=== PATIENT | male | born 1945 | race Caucasian/White ===

== ENCOUNTER 2016-08-26 06:15 | Day surgery (SDC) | payer OTHER ==
[2016-08-25 16:08] VITALS: BMI 28.6
[2016-08-26 06:33] VITALS: TEMP 97.5
[2016-08-26] MEDS: CYCLOPENTOLATE HCL 1% OPHTH SOLN 2 ML BOTTLE ONE ×3 (07:00→07:37)
[2016-08-26] MEDS: TROPICAMIDE 1% OPHTH SOLN 15 ML BOTTLE ONE ×3 (07:00→07:38)
[2016-08-26] MEDS: PHENYLEPHRINE 2.5% OPHTH SOLN 15 ML BOTTLE ONE ×3 (07:00→07:37)
[2016-08-26] MEDS: FLURBIPROFEN 0.03% OPHTH SOLN 2.5 ML BOTTLE ONE ×2 (07:00→07:15)
[2016-08-26] MEDS: CIPROFLOXACIN 0.3% EYE DROPS 5 ML BOTTLE ONE ×4 (07:00→07:38)
[2016-08-26] MEDS ORDERED: VANCOMYCIN 500 MG VIAL (RESTRICTED TO ID ONLY) ONE (07:17)
[2016-08-26] MEDS ORDERED: POVIDONE-IODINE 5% OPHTHALMIC PREP 30 ML SOLUTION ONE (07:17)
[2016-08-26] MEDS ORDERED: LIDOCAINE HCL/PF 1% SDV 5ML VIAL ONE (07:17)
[2016-08-26] MEDS ORDERED: WATER FOR INJ,STERILE 10 ML ONE (07:17)
[2016-08-26] MEDS ORDERED: LIDOCAINE HCL 2% JELLY (5 ML/TUBE) ONE (07:17)
[2016-08-26] MEDS ORDERED: ACETAMINOPHEN 325 MG TABLET (FP) PO PRN (07:43)
[2016-08-26] MEDS ORDERED: FLURBIPROFEN 0.03% OPHTH SOLN 2.5 ML BOTTLE OP SCH (07:45)
[2016-08-26] MEDS ORDERED: CYCLOPENTOLATE HCL 1% OPHTH SOLN 2 ML BOTTLE OP SCH (07:45)
[2016-08-26] MEDS ORDERED: CIPROFLOXACIN HCL 0.3% OPHTH 2.5ML BOTTLE OP SCH (07:45)
[2016-08-26] MEDS ORDERED: TROPICAMIDE 1% OPHTH SOLN 15 ML BOTTLE OP SCH (07:45)
[2016-08-26] MEDS ORDERED: PHENYLEPHRINE 2.5% OPHTH SOLN 15 ML BOTTLE OP SCH (07:45)
[2016-08-26] MEDS ORDERED: LIDOCAINE HCL 2% JELLY (5 ML/TUBE) TP ONE (07:50)
[2016-08-26] MEDS ORDERED: MIDAZOLAM HCL 2 MG/2 ML SINGLE DOSE VIAL ONE (07:54)
[2016-08-26] MEDS ORDERED: PHENYLEPHRINE/KETOROLAC 4 ML VIAL IO ONE ×2 (08:00→08:18)
[2016-08-26] MEDS ORDERED: POVIDONE-IODINE 5% OPHTHALMIC PREP 30 ML SOLUTION OS ONE (08:04)
[2016-08-26] MEDS ORDERED: LIDOCAINE HCL 1% PRESERVATIVE FREE - 30ML VIAL IO ONE (08:13)
[2016-08-26] MEDS ORDERED: CHONDROITIN SU A/HYALUR SOD 1 KIT IO ONE (08:13)
[2016-08-26] MEDS ORDERED: BSS (NA/CA/MG/K) BALANCED SALT SOLUTION OPHTH SOLN 15 ML BOTTLE OS ONE (08:13)
[2016-08-26 08:55] VITALS: BP 141/81; PULSE 64
--- NOTE | 2016-08-26 11:15 | SPEC ---
DATE OF OPERATION: 08/26/2016 PREOPERATIVE DIAGNOSIS: Cataract, left eye. POSTOPERATIVE DIAGNOSIS: Cataract, left eye. PROCEDURE: Phacoemulsification of left cataract with posterior chamber intraocular lens implantation. Lens used [id number], 22.0 Diopter power, Serial No. [id number]. SURGEON: Aminata Earl M.D. ANESTHESIA: Topical MAC. COMPLICATIONS: None. PROCEDURE: The patient was brought to the operating room and correctly identified along with the operative site and the correct intraocular lens smith. The patient was then prepped and draped in the usual sterile fashion including 5% Betadine solution in the conjunctival sac and an eyelid drape. An eyelid speculum was then placed in the eye. A paracentesis port was created and approximately 0.5 mL of preservative free Lidocaine was then injected into the eye. Viscoelastic was then injected to inflate the anterior chamber. A temporal clear corneal wound was created. A continuous circular capsulorrhexis was performed. The nucleus was then hydro-dissected with BSS and removed with phacoemulsification. The remaining cortical material was irrigated and aspirated. Viscoelastic was injected to inflate the capsular bag and the intraocular lens was then implanted into the capsular bag. The remaining Viscoelastic was irrigated and aspirated from the eye. The IOL was noted to be well centered and completely covered by the anterior capsulorrhexis. Topical Vancomycin was placed and the eye patched and shielded. The patient was then discharged from the operating room in stable condition. All wounds were tested and found to be watertight. No suture was placed. The eye was then shielded. The patient was then discharged from the operating room in stable condition. AMINATA EARL M.D. /[id number]
== END 2016-08-26 09:45 | disposition home or self-care (01) ==
LOC: JASU-SURG 06:15
PROVIDERS: ATTEND Ophthalmology
PROC: 08RK3JZ Replacement of Left Lens with Synthetic Substitute, Percutaneous Approach (ICD-10-PCS; principal; 2016-08-26 08:00)
DX: H26.9 Unspecified cataract (principal)
CPT/HCPCS: C9447

== ENCOUNTER 2016-09-09 07:12 | Day surgery (SDC) | payer OTHER ==
[2016-09-07 17:27] VITALS: BMI 28.6
[~2016-09-09 07:12] MED LIST: ACETAMINOPHEN 325 MG TABLET (FP) PO PRN; CIPROFLOXACIN HCL 0.3% OPHTH 2.5ML BOTTLE OP SCH; CYCLOPENTOLATE HCL 1% OPHTH SOLN 2 ML BOTTLE OP SCH; FLURBIPROFEN 0.03% OPHTH SOLN 2.5 ML BOTTLE OP SCH; PHENYLEPHRINE 2.5% OPHTH SOLN 15 ML BOTTLE OP SCH; TROPICAMIDE 1% OPHTH SOLN 15 ML BOTTLE OP SCH
[2016-09-09] MEDS ORDERED: LIDOCAINE HCL/PF 1% SDV 5ML VIAL ONE (07:31)
[2016-09-09] MEDS: CYCLOPENTOLATE HCL 1% OPHTH SOLN 2 ML BOTTLE ONE ×3 (07:50→08:20)
[2016-09-09] MEDS: CIPROFLOXACIN 0.3% EYE DROPS 5 ML BOTTLE ONE ×3 (07:50→08:20)
[2016-09-09] MEDS: PHENYLEPHRINE 2.5% OPHTH SOLN 15 ML BOTTLE ONE ×3 (07:50→08:21)
[2016-09-09] MEDS: TROPICAMIDE 1% OPHTH SOLN 15 ML BOTTLE ONE ×3 (07:50→08:21)
[2016-09-09] MEDS: FLURBIPROFEN 0.03% OPHTH SOLN 2.5 ML BOTTLE ONE ×3 (07:50→08:22)
[2016-09-09] MEDS ORDERED: PHENYLEPHRINE/KETOROLAC 4 ML VIAL IO ONE ×2 (08:15→09:29)
[2016-09-09 08:25] VITALS: TEMP 98.3
[2016-09-09] MEDS ORDERED: LIDOCAINE HCL 2% JELLY (5 ML/TUBE) TP ONE (08:45)
[2016-09-09] MEDS ORDERED: MIDAZOLAM HCL 2 MG/2 ML SINGLE DOSE VIAL ONE (08:58)
[2016-09-09] MEDS ORDERED: POVIDONE-IODINE 5% OPHTHALMIC PREP 30 ML SOLUTION OD ONE (09:15)
[2016-09-09] MEDS ORDERED: BSS (NA/CA/MG/K) BALANCED SALT SOLUTION OPHTH SOLN 15 ML BOTTLE OD ONE (09:23)
[2016-09-09] MEDS ORDERED: CHONDROITIN SU A/HYALUR SOD 1 KIT IO ONE (09:23)
[2016-09-09] MEDS ORDERED: LIDOCAINE HCL 1% PRESERVATIVE FREE - 30ML VIAL IO ONE (09:23)
[2016-09-09 11:55] VITALS: BP 132/76; PULSE 65
--- NOTE | 2016-09-09 22:02 | SPEC ---
DATE OF SURGERY: 09/09/2016 OPERATION: Phacoemulsification with posterior chamber intraocular lens implantation, right eye. Lens used SN60WF, Diopter power 21.5, Serial No. [id number]. PREOPERATIVE DIAGNOSIS: Cataract, right eye. POSTOPERATIVE DIAGNOSIS: Cataract, right eye. SURGEON: Aminata Earl M.D. ANESTHESIA: Topical MAC. COMPLICATIONS: None. PROCEDURE: The patient was brought to the operating room and correctly identified along with the operative site and the correct intraocular lens smith. The patient was then prepped and draped in the usual sterile fashion including 5% Betadine solution in the conjunctival sac and an eyelid drape. An eyelid speculum was then placed in the eye. A paracentesis port was created and approximately 0.5 mL of preservative free Lidocaine was then injected into the eye. Viscoelastic was then injected to inflate the anterior chamber. A temporal clear corneal wound was created. A continuous circular capsulorrhexis was performed. The nucleus was then hydrodissected with BSS and removed with phacoemulsification. The remaining cortical material was irrigated and aspirated. Viscoelastic was injected to inflate the capsular bag and the intraocular lens was then implanted into the capsular bag. The remaining Viscoelastic was irrigated and aspirated from the eye. The IOL was noted to be well centered and completely covered by the anterior capsulorrhexis. Topical vancomycin was placed and the eye patched and shielded. All wounds were tested and found to be watertight. No suture was placed. The eye was then shielded. The patient was then discharged from the operating room in stable condition. AMINATA EARL M.D. [id number]
== END 2016-09-09 10:40 | disposition home or self-care (01) ==
LOC: JASU-SURG 07:12
PROVIDERS: ATTEND Ophthalmology
PROC: 08RJ3JZ Replacement of Right Lens with Synthetic Substitute, Percutaneous Approach (ICD-10-PCS; principal; 2016-09-09 09:00)
DX: H26.9 Unspecified cataract (principal)
CPT/HCPCS: C9447

== ENCOUNTER 2023-01-06 08:24 | Inpatient (IN) | payer MEDICARE, OTHER ==
[2023-01-06 11:06] LABS: BASO % 0.6 % (0-2.0); EOS % 1.5 % (0-4.5); HEMATOCRIT 30.6 % (35.4-49); HEMOGLOBIN 10.1 GM/dL (11.7-16.9); LYMPH % 12.4 % (8-40); MCH 30.6 pg (25.7-33.7); MCHC 32.9 g/dl (32.0-35.9); MEAN PLT VOLUME 8.1 fl (7.5-11.1); NEUT % 78.5 % (42.8-82.8); PLATELET COUNT 201 10^3/uL (134-434); RBC 3.29 M/mm3 (4.00-5.60); RDW 15.7 % (11.9-15.9); WHITE BLOOD COUNT 7.7 K/mm3 (4.0-10.0)
[2023-01-06 11:13] LABS: INR 1.67 (0.83-1.09); PROTHROMBIN TIME (PATIENT) 19.3 SEC (9.7-13.0)
[2023-01-06] MEDS ORDERED: CEFTRIAXONE 1,000 MG in DEXTROSE 5%-WATER - 50 ML IVPB ONE (11:21)
[2023-01-06] MEDS ORDERED: AZITHROMYCIN IVPB 500 MG in DEXTROSE 5%-WATER - 250 ML IVPB ONE (11:21)
[2023-01-06] MEDS ORDERED: AZITHROMYCIN IVPB 500 MG/250 ML BAG IVPB ONE (11:23)
[2023-01-06] MEDS ORDERED: CEFTRIAXONE 1 GM/50 ML BAG ONE (11:23)
[2023-01-06 11:31] LABS: POTASSIUM 3.2 mmol/L (3.5-5.1)
[2023-01-06 11:33] LABS: CALCIUM 8.3 mg/dL (8.5-10.1)
[2023-01-06 11:34] LABS: ALBUMIN 3.4 g/dl (3.4-5.0); BLOOD UREA NITROGEN 5.3 mg/dL (7-18)
[2023-01-06 11:37] LABS: CREATININE 0.8 mg/dL (0.55-1.3)
[2023-01-06 11:39] LABS: BILIRUBIN,TOTAL 1.8 mg/dL (0.2-1); TOT PROT 8.1 g/dl (6.4-8.2)
[2023-01-06 11:42] LABS: N-TERMINAL BNP 2434.6 pg/ml (5-450)
[2023-01-06] MEDS ORDERED: FUROSEMIDE 40 MG/4 ML INJECTABLE VIAL IVPUSH ONE (12:26)
[2023-01-06] MEDS ORDERED: FUROSEMIDE 40 MG/4 ML INJECTABLE VIAL ONE (12:27)
[2023-01-06] MEDS ORDERED: POTASSIUM CHLORIDE TABS 20 MEQ TABLET.ER (FP) PO ONE ×3 (12:55→13:53)
[2023-01-06] MEDS ORDERED: PANTOPRAZOLE 40 MG TABLET PO ONE (13:19)
[2023-01-06] MEDS: PANTOPRAZOLE 40 MG TABLET PO SCH (13:25)
[2023-01-06 14:09] LABS: MAGNESIUM 2.1 mg/dL (1.8-2.4)
[2023-01-06 14:11] LABS: BILIRUBIN,DIRECT 0.6 mg/dL (0.0-0.2)
[2023-01-06] MEDS: ATORVASTATIN CA 10 MG TABLET (FP) PO SCH (21:30)
[2023-01-06] MEDS: ENOXAPARIN NA (PORCINE) 80 MG/0.8 ML DISP.SYRIN SQ SCH (21:31)
[2023-01-07 07:00] LABS: INR 1.46 (0.83-1.09); PROTHROMBIN TIME (PATIENT) 16.9 SEC (9.7-13.0)
[2023-01-07 07:04] LABS: BASO % 0.6 % (0-2.0); EOS % 2.5 % (0-4.5); HEMATOCRIT 31.3 % (35.4-49); HEMOGLOBIN 10.2 GM/dL (11.7-16.9); LYMPH % 16.6 % (8-40); MCH 30.1 pg (25.7-33.7); MCHC 32.5 g/dl (32.0-35.9); MEAN CELL VOLUME 92.6 fl (80-96); MEAN PLT VOLUME 8.5 fl (7.5-11.1); MONO % 6.4 % (3.8-10.2); NEUT % 73.9 % (42.8-82.8); PLATELET COUNT 221 10^3/uL (134-434); RBC 3.38 M/mm3 (4.00-5.60); RDW 15.3 % (11.9-15.9); WHITE BLOOD COUNT 7.6 K/mm3 (4.0-10.0)
[2023-01-07 07:09] LABS: POTASSIUM 3.4 mmol/L (3.5-5.1)
[2023-01-07 07:11] LABS: CALCIUM 8.4 mg/dL (8.5-10.1)
[2023-01-07 07:12] LABS: ALBUMIN 3.4 g/dl (3.4-5.0); BLOOD UREA NITROGEN 10.2 mg/dL (7-18); MAGNESIUM 2.1 mg/dL (1.8-2.4)
[2023-01-07 07:15] LABS: CREATININE 0.9 mg/dL (0.55-1.3); PHOSPHOROUS 2.7 mg/dL (2.5-4.9)
[2023-01-07 07:16] LABS: TOT PROT 8.2 g/dl (6.4-8.2)
[2023-01-07 07:17] LABS: BILIRUBIN,TOTAL 1.5 mg/dL (0.2-1)
[2023-01-07] MEDS ORDERED: POTASSIUM CHLORIDE TABS 20 MEQ TABLET.ER (FP) PO SCH (10:00)
[2023-01-07] MEDS ORDERED: AZITHROMYCIN IVPB 250 MG in DEXTROSE 5%-WATER - 250 ML IVPB SCH (10:00)
[2023-01-07] MEDS ORDERED: DIGOXIN 0.125 MG TABLET PO SCH (10:00)
[2023-01-07] MEDS ORDERED: RAMIPRIL 5 MG CAPSULE PO SCH (10:00)
[2023-01-07] MEDS ORDERED: CEFTRIAXONE 1 GM in DEXTROSE 5%-WATER - 50 ML IVPB SCH (10:00)
[2023-01-07] MEDS ORDERED: HEPARIN NA (PORCINE) 5,000 UNITS/ML 1ML VIAL IVPUSH PRN ×2 (10:22)
[2023-01-07] MEDS ORDERED: HEPARIN INFUSION - 25,000 UNITS/500 ML INFUS.BAG IVPB SCH (10:30)
[2023-01-07] MEDS: PANTOPRAZOLE 40 MG TABLET PO SCH (10:39)
[2023-01-07] MEDS: FUROSEMIDE 40 MG/4 ML INJECTABLE VIAL IVPUSH SCH (10:39)
[2023-01-07] MEDS: ALLOPURINOL 300 MG TABLET (FP) PO SCH (10:39)
[2023-01-07] MEDS: metoPROLOL SUCCINATE 25 MG TAB.SR.24H (FP) PO SCH (10:40)
[2023-01-07] MEDS: ENOXAPARIN NA (PORCINE) 80 MG/0.8 ML DISP.SYRIN SQ SCH ×2 (10:40→10:52)
[2023-01-07] MEDS ORDERED: POTASSIUM CHLORIDE TABS 20 MEQ TABLET.ER (FP) PO ONE (10:45)
[2023-01-07] MEDS: POTASSIUM CHLORIDE TABS 20 MEQ TABLET.ER (FP) PO SCH (13:41)
[2023-01-07] MEDS ORDERED: RAMIPRIL 5 MG CAPSULE PO ONE (14:15)
[2023-01-07] MEDS ORDERED: ENOXAPARIN NA (PORCINE) 80 MG/0.8 ML DISP.SYRIN SQ ONE (14:45)
[2023-01-07] MEDS ORDERED: BISACODYL 5 MG TABLET.DR (FP) PO ONE (16:00)
[2023-01-07] MEDS ORDERED: PEG 3350/NA SULF BICARB CL/KCL 4000 ML SOLN.RECON PO ONE (17:00)
[2023-01-07] MEDS ORDERED: APIXABAN 5 MG TABLET PO SCH (22:00)
[2023-01-07] MEDS: ATORVASTATIN CA 10 MG TABLET (FP) PO SCH (22:13)
[2023-01-07] MEDS: POLYETHYLENE GLYCOL (HEALTHYLAX) 3350 17 GM PACKET PO SCH (22:13)
[2023-01-08 07:10] LABS: BASO % 0.7 % (0-2.0); EOS % 3.3 % (0-4.5); HEMATOCRIT 32.6 % (35.4-49); HEMOGLOBIN 10.9 GM/dL (11.7-16.9); LYMPH % 15.7 % (8-40); MCHC 33.4 g/dl (32.0-35.9); MEAN CELL VOLUME 92.7 fl (80-96); MEAN PLT VOLUME 8.3 fl (7.5-11.1); MONO % 7.8 % (3.8-10.2); NEUT % 72.5 % (42.8-82.8); PLATELET COUNT 232 10^3/uL (134-434); RBC 3.52 M/mm3 (4.00-5.60); RDW 15.3 % (11.9-15.9); WHITE BLOOD COUNT 8.4 K/mm3 (4.0-10.0)
[2023-01-08 07:17] LABS: INR 1.38 (0.83-1.09); PROTHROMBIN TIME (PATIENT) 15.9 SEC (9.7-13.0)
[2023-01-08 08:06] LABS: MAGNESIUM 1.9 mg/dL (1.8-2.4)
[2023-01-08 08:07] LABS: TOT PROT 8.6 g/dl (6.4-8.2)
[2023-01-08 08:09] LABS: ALBUMIN 3.6 g/dl (3.4-5.0); BLOOD UREA NITROGEN 6.9 mg/dL (7-18); CALCIUM 8.2 mg/dL (8.5-10.1); PHOSPHOROUS 3.1 mg/dL (2.5-4.9)
[2023-01-08 08:10] LABS: CREATININE 0.8 mg/dL (0.55-1.3)
[2023-01-08 08:11] LABS: BILIRUBIN,TOTAL 1.8 mg/dL (0.2-1)
[2023-01-08] MEDS: POLYETHYLENE GLYCOL (HEALTHYLAX) 3350 17 GM PACKET PO SCH ×2 (09:14→22:21)
[2023-01-08] MEDS: RAMIPRIL 5 MG CAPSULE PO SCH (09:19)
[2023-01-08] MEDS: PANTOPRAZOLE 40 MG TABLET PO SCH (09:19)
[2023-01-08] MEDS: metoPROLOL SUCCINATE 25 MG TAB.SR.24H (FP) PO SCH (09:19)
[2023-01-08] MEDS: FUROSEMIDE 40 MG/4 ML INJECTABLE VIAL IVPUSH SCH (09:20)
[2023-01-08] MEDS: POTASSIUM CHLORIDE TABS 20 MEQ TABLET.ER (FP) PO SCH ×3 (09:20→22:21)
[2023-01-08] MEDS: CEFTRIAXONE 1 GM in DEXTROSE 5%-WATER - 50 ML IVPB SCH (09:20)
[2023-01-08] MEDS ORDERED: LORazepam 1 MG TABLET PO PRN (13:56)
[2023-01-08] MEDS: APIXABAN 5 MG TABLET PO SCH ×2 (13:59→22:22)
[2023-01-08] MEDS: ALLOPURINOL 300 MG TABLET (FP) PO SCH (14:00)
[2023-01-08] MEDS: DOXYCYCLINE INJECTION 100 MG in DEXTROSE 5%-WATER 100 ML IVPB SCH ×2 (14:00→22:22)
[2023-01-08] MEDS: LORazepam 1 MG TABLET PO SCH ×3 (15:05→22:22)
[2023-01-08 16:45] VITALS: BMI 27.8
[2023-01-08] MEDS: ATORVASTATIN CA 10 MG TABLET (FP) PO SCH (22:21)
[2023-01-09] MEDS: LORazepam 1 MG TABLET PO SCH ×3 (06:10→12:27)
[2023-01-09 08:37] LABS: HEMATOCRIT 29.7 % (35.4-49); HEMOGLOBIN 10.2 GM/dL (11.7-16.9); MCH 31.1 pg (25.7-33.7); MCHC 34.4 g/dl (32.0-35.9); MEAN CELL VOLUME 90.5 fl (80-96); MEAN PLT VOLUME 8.1 fl (7.5-11.1); PLATELET COUNT 244 10^3/uL (134-434); RBC 3.28 M/mm3 (4.00-5.60); RDW 15.5 % (11.9-15.9); WHITE BLOOD COUNT 8.5 K/mm3 (4.0-10.0)
[2023-01-09 08:59] LABS: POTASSIUM 3.3 mmol/L (3.5-5.1)
[2023-01-09 09:01] LABS: CALCIUM 8.5 mg/dL (8.5-10.1)
[2023-01-09 09:02] LABS: ALBUMIN 3.4 g/dl (3.4-5.0); BLOOD UREA NITROGEN 11.2 mg/dL (7-18)
[2023-01-09 09:05] LABS: CREATININE 0.9 mg/dL (0.55-1.3)
[2023-01-09 09:06] LABS: BILIRUBIN,TOTAL 1.2 mg/dL (0.2-1)
[2023-01-09] MEDS ORDERED: POTASSIUM CHLORIDE ORAL LIQUID 20 MEQ/15 ML PO ONE (09:10)
[2023-01-09] MEDS: PANTOPRAZOLE 40 MG TABLET PO SCH (09:30)
[2023-01-09] MEDS: POLYETHYLENE GLYCOL (HEALTHYLAX) 3350 17 GM PACKET PO SCH ×3 (09:30→21:30)
[2023-01-09] MEDS: FOLIC ACID 1 MG TABLET (FP) PO SCH (09:31)
[2023-01-09] MEDS: APIXABAN 5 MG TABLET PO SCH ×2 (09:31→21:31)
[2023-01-09] MEDS: ALLOPURINOL 300 MG TABLET (FP) PO SCH (09:31)
[2023-01-09] MEDS: RAMIPRIL 5 MG CAPSULE PO SCH (09:31)
[2023-01-09] MEDS: metoPROLOL SUCCINATE 25 MG TAB.SR.24H (FP) PO SCH (09:31)
[2023-01-09] MEDS: CEFTRIAXONE 1 GM in DEXTROSE 5%-WATER - 50 ML IVPB SCH (09:34)
[2023-01-09] MEDS: ASPIRIN COATED 81 MG TABLET.EC PO SCH (09:36)
[2023-01-09] MEDS: POTASSIUM CHLORIDE TABS 20 MEQ TABLET.ER (FP) PO SCH ×2 (09:44→21:31)
[2023-01-09] MEDS: FUROSEMIDE 40 MG/4 ML INJECTABLE VIAL IVPUSH SCH (12:26)
[2023-01-09] MEDS: DOXYCYCLINE INJECTION 100 MG in DEXTROSE 5%-WATER 100 ML IVPB SCH ×2 (12:26→21:31)
[2023-01-09] MEDS: ATORVASTATIN CA 10 MG TABLET (FP) PO SCH (21:31)
[2023-01-10] MEDS ORDERED: LORazepam 1 MG TABLET PO SCH (05:00)
[2023-01-10 07:42] LABS: MAGNESIUM 2.2 mg/dL (1.8-2.4)
[2023-01-10 07:45] LABS: HEMATOCRIT 30.8 % (35.4-49); HEMOGLOBIN 10.4 GM/dL (11.7-16.9); MCH 30.8 pg (25.7-33.7); MCHC 33.8 g/dl (32.0-35.9); MEAN CELL VOLUME 91.2 fl (80-96); MEAN PLT VOLUME 7.9 fl (7.5-11.1); PLATELET COUNT 240 10^3/uL (134-434); RBC 3.37 M/mm3 (4.00-5.60); RDW 15.9 % (11.9-15.9); WHITE BLOOD COUNT 9.9 K/mm3 (4.0-10.0)
[2023-01-10] MEDS: CEFTRIAXONE 1 GM in DEXTROSE 5%-WATER - 50 ML IVPB SCH (09:37)
[2023-01-10] MEDS: RAMIPRIL 5 MG CAPSULE PO SCH (09:39)
[2023-01-10] MEDS: DOXYCYCLINE INJECTION 100 MG in DEXTROSE 5%-WATER 100 ML IVPB SCH ×2 (09:39→21:34)
[2023-01-10] MEDS: APIXABAN 5 MG TABLET PO SCH ×2 (09:40→21:34)
[2023-01-10] MEDS: ALLOPURINOL 300 MG TABLET (FP) PO SCH (09:40)
[2023-01-10] MEDS: FUROSEMIDE 40 MG/4 ML INJECTABLE VIAL IVPUSH SCH (09:40)
[2023-01-10] MEDS: ASPIRIN COATED 81 MG TABLET.EC PO SCH (09:40)
[2023-01-10] MEDS: FOLIC ACID 1 MG TABLET (FP) PO SCH (09:40)
[2023-01-10] MEDS: metoPROLOL SUCCINATE 25 MG TAB.SR.24H (FP) PO SCH (09:40)
[2023-01-10] MEDS: PANTOPRAZOLE 40 MG TABLET PO SCH (09:40)
[2023-01-10] MEDS: POLYETHYLENE GLYCOL (HEALTHYLAX) 3350 17 GM PACKET PO SCH ×2 (09:41→21:34)
[2023-01-10 09:56] LABS: POTASSIUM 3.8 mmol/L (3.5-5.1)
[2023-01-10 09:58] LABS: CALCIUM 8.8 mg/dL (8.5-10.1)
[2023-01-10 09:59] LABS: ALBUMIN 3.6 g/dl (3.4-5.0); BLOOD UREA NITROGEN 13.9 mg/dL (7-18)
[2023-01-10 10:02] LABS: CREATININE 1.1 mg/dL (0.55-1.3)
[2023-01-10 10:03] LABS: BILIRUBIN,TOTAL 0.9 mg/dL (0.2-1)
[2023-01-10 10:04] LABS: TOT PROT 8.3 g/dl (6.4-8.2)
[2023-01-10 10:07] LABS: N-TERMINAL BNP 1543.7 pg/ml (5-450)
[2023-01-10] MEDS: ATORVASTATIN CA 10 MG TABLET (FP) PO SCH (21:34)
[2023-01-11] MEDS ORDERED: LORazepam 0.5 MG TABLET PO PRN
[2023-01-11] MEDS ORDERED: LORazepam 0.5 MG TABLET PO SCH (05:00)
[2023-01-11 09:13] LABS: BASO % 0.7 % (0-2.0); EOS % 1.9 % (0-4.5); HEMATOCRIT 30.2 % (35.4-49); HEMOGLOBIN 9.7 GM/dL (11.7-16.9); LYMPH % 15.9 % (8-40); MCH 29.9 pg (25.7-33.7); MCHC 32.2 g/dl (32.0-35.9); MEAN CELL VOLUME 92.9 fl (80-96); MEAN PLT VOLUME 8.6 fl (7.5-11.1); MONO % 7.8 % (3.8-10.2); NEUT % 73.7 % (42.8-82.8); PLATELET COUNT 236 10^3/uL (134-434); RBC 3.26 M/mm3 (4.00-5.60); RDW 15.2 % (11.9-15.9); WHITE BLOOD COUNT 9.3 K/mm3 (4.0-10.0)
[2023-01-11] MEDS: CEFTRIAXONE 1 GM in DEXTROSE 5%-WATER - 50 ML IVPB SCH (10:07)
[2023-01-11] MEDS: DOXYCYCLINE INJECTION 100 MG in DEXTROSE 5%-WATER 100 ML IVPB SCH ×2 (10:08→21:26)
[2023-01-11] MEDS: ALLOPURINOL 300 MG TABLET (FP) PO SCH (10:10)
[2023-01-11] MEDS: APIXABAN 5 MG TABLET PO SCH ×2 (10:11→21:26)
[2023-01-11] MEDS: RAMIPRIL 5 MG CAPSULE PO SCH (10:11)
[2023-01-11] MEDS: ASPIRIN COATED 81 MG TABLET.EC PO SCH (10:12)
[2023-01-11] MEDS: POLYETHYLENE GLYCOL (HEALTHYLAX) 3350 17 GM PACKET PO SCH ×2 (10:12→21:26)
[2023-01-11] MEDS: FUROSEMIDE 40 MG/4 ML INJECTABLE VIAL IVPUSH SCH (10:12)
[2023-01-11] MEDS: FOLIC ACID 1 MG TABLET (FP) PO SCH (10:12)
[2023-01-11] MEDS: metoPROLOL SUCCINATE 25 MG TAB.SR.24H (FP) PO SCH (10:12)
[2023-01-11] MEDS: PANTOPRAZOLE 40 MG TABLET PO SCH (10:13)
[2023-01-11 11:24] LABS: POTASSIUM 3.4 mmol/L (3.5-5.1)
[2023-01-11 11:26] LABS: ALBUMIN 3.4 g/dl (3.4-5.0); BLOOD UREA NITROGEN 13.9 mg/dL (7-18); CALCIUM 9.1 mg/dL (8.5-10.1); MAGNESIUM 2.2 mg/dL (1.8-2.4)
[2023-01-11 11:29] LABS: CREATININE 0.8 mg/dL (0.55-1.3)
[2023-01-11 11:31] LABS: BILIRUBIN,TOTAL 0.8 mg/dL (0.2-1); TOT PROT 7.7 g/dl (6.4-8.2)
[2023-01-11] MEDS ORDERED: POTASSIUM CHLORIDE ORAL LIQUID 20 MEQ/15 ML PO ONE (13:15)
[2023-01-11] MEDS: amLODIPine BESYLATE 5 MG TABLET (FP) PO SCH (13:48)
[2023-01-11] MEDS ORDERED: POTASSIUM CHLORIDE TABS 20 MEQ TABLET.ER (FP) PO ONE (15:38)
[2023-01-11] MEDS: ATORVASTATIN CA 10 MG TABLET (FP) PO SCH (21:26)
[2023-01-11] MEDS: POTASSIUM CHLORIDE TABS 20 MEQ TABLET.ER (FP) PO SCH (21:26)
[2023-01-12] MEDS ORDERED: LORazepam 0.5 MG TABLET PO ONE (05:00)
[2023-01-12 08:17] LABS: POTASSIUM 3.9 mmol/L (3.5-5.1)
[2023-01-12 08:29] LABS: HEMATOCRIT 32.9 % (35.4-49); HEMOGLOBIN 10.8 GM/dL (11.7-16.9); MCH 30.6 pg (25.7-33.7); MCHC 32.7 g/dl (32.0-35.9); MEAN CELL VOLUME 93.4 fl (80-96); MEAN PLT VOLUME 8.8 fl (7.5-11.1); PLATELET COUNT 259 10^3/uL (134-434); RBC 3.52 M/mm3 (4.00-5.60); RDW 15.4 % (11.9-15.9); WHITE BLOOD COUNT 9.2 K/mm3 (4.0-10.0)
[2023-01-12 08:40] LABS: CALCIUM 9.3 mg/dL (8.5-10.1)
[2023-01-12 08:41] LABS: ALBUMIN 3.6 g/dl (3.4-5.0); BLOOD UREA NITROGEN 15.2 mg/dL (7-18); MAGNESIUM 2.3 mg/dL (1.8-2.4)
[2023-01-12 08:44] LABS: CREATININE 0.8 mg/dL (0.55-1.3); PHOSPHOROUS 3.9 mg/dL (2.5-4.9)
[2023-01-12 08:45] LABS: BILIRUBIN,TOTAL 0.9 mg/dL (0.2-1)
[2023-01-12 08:46] LABS: TOT PROT 8.6 g/dl (6.4-8.2)
[2023-01-12] MEDS: CEFTRIAXONE 1 GM in DEXTROSE 5%-WATER - 50 ML IVPB SCH (09:49)
[2023-01-12] MEDS: POTASSIUM CHLORIDE TABS 20 MEQ TABLET.ER (FP) PO SCH ×2 (09:55→22:25)
[2023-01-12] MEDS: FOLIC ACID 1 MG TABLET (FP) PO SCH (09:55)
[2023-01-12] MEDS: amLODIPine BESYLATE 5 MG TABLET (FP) PO SCH (09:55)
[2023-01-12] MEDS: ASPIRIN COATED 81 MG TABLET.EC PO SCH (09:55)
[2023-01-12] MEDS: PANTOPRAZOLE 40 MG TABLET PO SCH (09:55)
[2023-01-12] MEDS: APIXABAN 5 MG TABLET PO SCH ×2 (09:55→22:25)
[2023-01-12] MEDS: ALLOPURINOL 300 MG TABLET (FP) PO SCH (09:56)
[2023-01-12] MEDS: POLYETHYLENE GLYCOL (HEALTHYLAX) 3350 17 GM PACKET PO SCH ×2 (09:56→22:26)
[2023-01-12] MEDS: FUROSEMIDE 40 MG/4 ML INJECTABLE VIAL IVPUSH SCH (09:56)
[2023-01-12] MEDS: metoPROLOL SUCCINATE 25 MG TAB.SR.24H (FP) PO SCH (09:56)
[2023-01-12] MEDS: DOXYCYCLINE INJECTION 100 MG in DEXTROSE 5%-WATER 100 ML IVPB SCH ×2 (11:01→22:30)
[2023-01-12] MEDS: RAMIPRIL 5 MG CAPSULE PO SCH (11:07)
[2023-01-12] MEDS ORDERED: amLODIPine BESYLATE 5 MG TABLET (FP) PO ONE (14:00)
[2023-01-12] MEDS: BANATROL PLUS POWDER PACKET PO SCH ×2 (15:29→22:23)
[2023-01-12] MEDS ORDERED: ACETAMINOPHEN 325 MG TABLET (FP) PO PRN (22:15)
[2023-01-12] MEDS: ATORVASTATIN CA 10 MG TABLET (FP) PO SCH (22:25)
[2023-01-13] MEDS: BANATROL PLUS POWDER PACKET PO SCH ×3 (05:19→15:26)
[2023-01-13 08:28] LABS: HEMATOCRIT 30.5 % (35.4-49); HEMOGLOBIN 10.1 GM/dL (11.7-16.9); MCH 30.6 pg (25.7-33.7); MCHC 32.9 g/dl (32.0-35.9); MEAN CELL VOLUME 92.8 fl (80-96); MEAN PLT VOLUME 8.4 fl (7.5-11.1); PLATELET COUNT 230 10^3/uL (134-434); RBC 3.29 M/mm3 (4.00-5.60); RDW 15.8 % (11.9-15.9); WHITE BLOOD COUNT 8.4 K/mm3 (4.0-10.0)
[2023-01-13 08:49] LABS: POTASSIUM 4.3 mmol/L (3.5-5.1)
[2023-01-13 08:54] LABS: ALBUMIN 3.3 g/dl (3.4-5.0); BLOOD UREA NITROGEN 17.8 mg/dL (7-18); CALCIUM 9.1 mg/dL (8.5-10.1); MAGNESIUM 2.3 mg/dL (1.8-2.4)
[2023-01-13 08:57] LABS: PHOSPHOROUS 4.2 mg/dL (2.5-4.9)
[2023-01-13 08:58] LABS: CREATININE 0.8 mg/dL (0.55-1.3)
[2023-01-13] MEDS ORDERED: amLODIPine BESYLATE 10 MG TABLET (FP) PO SCH (10:00)
[2023-01-13] MEDS ORDERED: THIAMINE HCL 100 MG TABLET (FP) PO SCH (10:00)
[2023-01-13] MEDS ORDERED: RAMIPRIL 5 MG CAPSULE PO SCH (10:00)
[2023-01-13] MEDS: CEFTRIAXONE 1 GM in DEXTROSE 5%-WATER - 50 ML IVPB SCH (10:08)
[2023-01-13] MEDS: DOXYCYCLINE INJECTION 100 MG in DEXTROSE 5%-WATER 100 ML IVPB SCH (10:15)
[2023-01-13] MEDS: ALLOPURINOL 300 MG TABLET (FP) PO SCH (10:15)
[2023-01-13] MEDS: FUROSEMIDE 40 MG/4 ML INJECTABLE VIAL IVPUSH SCH (10:17)
[2023-01-13] MEDS: ASPIRIN COATED 81 MG TABLET.EC PO SCH (10:17)
[2023-01-13] MEDS: FOLIC ACID 1 MG TABLET (FP) PO SCH (10:17)
[2023-01-13] MEDS: PANTOPRAZOLE 40 MG TABLET PO SCH (10:17)
[2023-01-13] MEDS: POTASSIUM CHLORIDE TABS 20 MEQ TABLET.ER (FP) PO SCH (10:17)
[2023-01-13] MEDS: APIXABAN 5 MG TABLET PO SCH (10:18)
[2023-01-13] MEDS: metoPROLOL SUCCINATE 25 MG TAB.SR.24H (FP) PO SCH (10:18)
[2023-01-13] MEDS: POLYETHYLENE GLYCOL (HEALTHYLAX) 3350 17 GM PACKET PO SCH (10:19)
[2023-01-13 14:27] VITALS: BP 140/72; PULSE 77; RESP 20; TEMP 98.6
== END 2023-01-13 16:00 | disposition home or self-care (01) | DRG 291 ==
LOC: JER 08:24 → JERBED 14:15 → J4S 20:33
PROVIDERS: ADMIT Internal Medicine; ATTEND Internal Medicine
PROC: 0DB78ZX Excision of Stomach, Pylorus, Via Natural or Artificial Opening Endoscopic, Diagnostic (ICD-10-PCS; 2023-01-08)
PROC: 0DJD8ZZ Inspection of Lower Intestinal Tract, Via Natural or Artificial Opening Endoscopic (ICD-10-PCS; 2023-01-08)
PROC: 0DJ08ZZ Inspection of Upper Intestinal Tract, Via Natural or Artificial Opening Endoscopic (ICD-10-PCS; principal; 2023-01-08 14:30)
DX: I11.0 Hypertensive heart disease with heart failure (principal); I50.33 Acute on chronic diastolic (congestive) heart failure; J18.9 Pneumonia, unspecified organism; D64.9 Anemia, unspecified; I48.91 Unspecified atrial fibrillation; E87.6 Hypokalemia; I25.10 Atherosclerotic heart disease of native coronary artery without angina pectoris; K29.70 Gastritis, unspecified, without bleeding; Z95.1 Presence of aortocoronary bypass graft; E78.5 Hyperlipidemia, unspecified; K64.8 Other hemorrhoids
CPT/HCPCS: 0241U-QW; 36415; 70450-TC; 71045-TC-FY; 76536-TC; 76705-TC; 80053; 80061; 80162; 82105; 82248; 82272; 82308; 82607; 82728; 82746; 83036; 83540; 83550; 83735; 83880; 84100; 84443; 84484; 85025; 85027; 85610; 85730; 86803; 86850; 86900; 86901; 87040; 87522; 88305-TC; 93005; 93010; 93306-TC; 94010; 94761; 97116-GP; 97161-GP; 99285-25

== ENCOUNTER 2023-02-17 00:32 | Inpatient (IN) | payer MEDICARE, OTHER ==
[2023-02-17 01:35] LABS: VENOUS BASE EXCESS 2.2 mmol/L (-2-2); VENOUS O2 SATURATION 51.8 % (70-80); VENOUS PCO2 49.8 mmHg (38-52); VENOUS PH 7.373 (7.310-7.410)
[2023-02-17 01:36] LABS: BASO % 0.5 % (0-2.0); EOS % 1.8 % (0-4.5); HEMATOCRIT 25.5 % (35.4-49); HEMOGLOBIN 8.8 GM/dL (11.7-16.9); LYMPH % 11.2 % (8-40); MCH 31.1 pg (25.7-33.7); MCHC 34.6 g/dl (32.0-35.9); MEAN CELL VOLUME 89.7 fl (80-96); MEAN PLT VOLUME 7.5 fl (7.5-11.1); MONO % 6.7 % (3.8-10.2); NEUT % 79.8 % (42.8-82.8); PLATELET COUNT 202 10^3/uL (134-434); RBC 2.85 M/mm3 (4.00-5.60); RDW 15.9 % (11.9-15.9); WHITE BLOOD COUNT 8.8 K/mm3 (4.0-10.0)
[2023-02-17 01:43] LABS: INR 1.7 (0.83-1.09); PROTHROMBIN TIME (PATIENT) 19.6 SEC (9.7-13.0)
[2023-02-17 01:46] LABS: ACTIVATED PTT 40.2 SECONDS (25.2-36.5)
[2023-02-17 01:56] LABS: POTASSIUM 3.5 mmol/L (3.5-5.1)
[2023-02-17 01:58] LABS: CALCIUM 8.7 mg/dL (8.5-10.1)
[2023-02-17 01:59] LABS: ALBUMIN 3.5 g/dl (3.4-5.0); MAGNESIUM 2.2 mg/dL (1.8-2.4)
[2023-02-17 02:02] LABS: PHOSPHOROUS 3.3 mg/dL (2.5-4.9)
[2023-02-17 02:03] LABS: BILIRUBIN,TOTAL 1.2 mg/dL (0.2-1); TOT PROT 8.4 g/dl (6.4-8.2)
[2023-02-17 02:06] LABS: N-TERMINAL BNP 2685.8 pg/ml (5-450)
[2023-02-17] MEDS ORDERED: PANTOPRAZOLE 40 MG TABLET PO ONE (08:43)
[2023-02-17] MEDS ORDERED: RAMIPRIL 5 MG CAPSULE ONE (08:43)
[2023-02-17] MEDS ORDERED: metoPROLOL SUCCINATE 25 MG TAB.SR.24H (FP) PO ONE (08:43)
[2023-02-17] MEDS ORDERED: amLODIPine BESYLATE 10 MG TABLET (FP) ONE (08:43)
[2023-02-17] MEDS ORDERED: FUROSEMIDE 40 MG/4 ML INJECTABLE VIAL ONE (08:44)
[2023-02-17] MEDS: metoPROLOL SUCCINATE 25 MG TAB.SR.24H (FP) PO SCH (09:10)
[2023-02-17] MEDS: amLODIPine BESYLATE 10 MG TABLET (FP) PO SCH (09:10)
[2023-02-17] MEDS: FUROSEMIDE 40 MG/4 ML INJECTABLE VIAL IVPUSH SCH (09:10)
[2023-02-17] MEDS: PANTOPRAZOLE 40 MG TABLET PO SCH (09:10)
[2023-02-17] MEDS: RAMIPRIL 5 MG CAPSULE PO SCH (09:10)
[2023-02-17 09:21] VITALS: BMI 27.8
[2023-02-17] MEDS: MONTELUKAST NA 10 MG TABLET PO SCH (22:16)
[2023-02-17] MEDS: APIXABAN 5 MG TABLET PO SCH (22:16)
[2023-02-18 06:01] VITALS: RESP 18
[2023-02-18] MEDS: amLODIPine BESYLATE 10 MG TABLET (FP) PO SCH (10:07)
[2023-02-18] MEDS: metoPROLOL SUCCINATE 25 MG TAB.SR.24H (FP) PO SCH (10:07)
[2023-02-18] MEDS: APIXABAN 5 MG TABLET PO SCH (10:07)
[2023-02-18] MEDS: RAMIPRIL 5 MG CAPSULE PO SCH (10:07)
[2023-02-18] MEDS: PANTOPRAZOLE 40 MG TABLET PO SCH (10:07)
[2023-02-18] MEDS: FUROSEMIDE 40 MG/4 ML INJECTABLE VIAL IVPUSH SCH (10:07)
[2023-02-18] MEDS ORDERED: ENOXAPARIN NA (PORCINE) 80 MG/0.8 ML DISP.SYRIN SQ ONE (22:00)
[2023-02-18] MEDS: MONTELUKAST NA 10 MG TABLET PO SCH (22:24)
[2023-02-19] MEDS: metoPROLOL SUCCINATE 25 MG TAB.SR.24H (FP) PO SCH (10:47)
[2023-02-19] MEDS: RAMIPRIL 5 MG CAPSULE PO SCH (10:47)
[2023-02-19] MEDS: amLODIPine BESYLATE 10 MG TABLET (FP) PO SCH (10:47)
[2023-02-19] MEDS: PANTOPRAZOLE 40 MG TABLET PO SCH (10:47)
[2023-02-19] MEDS: FUROSEMIDE 40 MG/4 ML INJECTABLE VIAL IVPUSH SCH (10:47)
[2023-02-19] MEDS ORDERED: ENOXAPARIN NA (PORCINE) 80 MG/0.8 ML DISP.SYRIN SQ ONE (12:27)
[2023-02-19] MEDS ORDERED: POTASSIUM CHLORIDE TABS 20 MEQ TABLET.ER (FP) PO ONE (12:30)
[2023-02-19 15:24] VITALS: BP 140/67; PULSE 73; TEMP 97.9
[2023-02-19] MEDS ORDERED: RAMIPRIL 5 MG CAPSULE PO SCH (22:00)
== END 2023-02-19 16:06 | disposition short-term general hospital (02) | DRG 291 ==
LOC: JER 00:32 → JERBED 04:12 → J4W 20:21
PROVIDERS: ADMIT Internal Medicine; ATTEND Internal Medicine
DX: I11.0 Hypertensive heart disease with heart failure (principal); I50.33 Acute on chronic diastolic (congestive) heart failure; K92.2 Gastrointestinal hemorrhage, unspecified; D64.9 Anemia, unspecified; Z95.2 Presence of prosthetic heart valve; I48.91 Unspecified atrial fibrillation; Z79.01 Long term (current) use of anticoagulants; I25.10 Atherosclerotic heart disease of native coronary artery without angina pectoris; F10.90 Alcohol use, unspecified, uncomplicated; Z91.51 Personal history of suicidal behavior
CPT/HCPCS: 0241U-QW; 36415; 71045-TC-FY; 80053; 82272; 82728; 82803; 83540; 83550; 83735; 83880; 84100; 84484; 85025; 85610; 85730; 93005; 93010; 93306-TC; 99285-25

== ENCOUNTER 2023-05-28 11:31 | Inpatient (IN) | payer MEDICARE, OTHER ==
[2023-05-28 12:42] LABS: BASO % 0.4 % (0-2.0); EOS % 0.4 % (0-4.5); HEMATOCRIT 14.1 % (35.4-49); LYMPH % 11.2 % (8-40); MCH 29.9 pg (25.7-33.7); MCHC 32.1 g/dl (32.0-35.9); MEAN CELL VOLUME 93.3 fl (80-96); MEAN PLT VOLUME 7.1 fl (7.5-11.1); MONO % 7.6 % (3.8-10.2); NEUT % 80.4 % (42.8-82.8); PLATELET COUNT 156 10^3/uL (134-434); RBC 1.52 M/mm3 (4.00-5.60); RDW 18.4 % (11.9-15.9); WHITE BLOOD COUNT 15.6 K/mm3 (4.0-10.0)
[2023-05-28 12:46] LABS: HEMOGLOBIN 4.5 GM/dL (11.7-16.9)
[2023-05-28 12:48] LABS: INR 2.18 (0.83-1.09); PROTHROMBIN TIME (PATIENT) 25.1 SEC (9.7-13.0)
[2023-05-28 12:51] LABS: ACTIVATED PTT 31.7 SECONDS (25.2-36.5)
[2023-05-28 12:59] LABS: POTASSIUM 3.5 mmol/L (3.5-5.1)
[2023-05-28 13:01] LABS: BLOOD UREA NITROGEN 37.7 mg/dL (7-18); CALCIUM 8.1 mg/dL (8.5-10.1)
[2023-05-28 13:04] LABS: CREATININE 1.1 mg/dL (0.55-1.3)
[2023-05-28 13:06] LABS: BILIRUBIN,TOTAL 0.5 mg/dL (0.2-1); TOT PROT 6.6 g/dl (6.4-8.2)
[2023-05-28 13:09] LABS: N-TERMINAL BNP 1005.1 pg/ml (5-450)
[2023-05-28] MEDS ORDERED: PANTOPRAZOLE SODIUM 40 MG/100 ML BAG IVPB ONE (13:50)
[2023-05-28] MEDS: PANTOPRAZOLE SODIUM 40 MG VIAL IVPUSH ONE (13:54)
[2023-05-28] MEDS ORDERED: PANTOPRAZOLE SODIUM 40 MG VIAL ONE (13:56)
[2023-05-28] MEDS: PANTOPRAZOLE SODIUM 80 MG in SODIUM CHLORIDE 100 ML IVPB SCH (14:02)
[2023-05-28 18:39] LABS: HEMATOCRIT 17.2 % (35.4-49); MCH 29.1 pg (25.7-33.7); MCHC 32.2 g/dl (32.0-35.9); MEAN CELL VOLUME 90.3 fl (80-96); MEAN PLT VOLUME 7.9 fl (7.5-11.1); PLATELET COUNT 164 10^3/uL (134-434); RDW 17.9 % (11.9-15.9); WHITE BLOOD COUNT 14.3 K/mm3 (4.0-10.0)
[2023-05-28 18:42] LABS: HEMOGLOBIN 5.5 GM/dL (11.7-16.9)
[2023-05-28] MEDS ORDERED: MONTELUKAST NA 10 MG TABLET ONE (22:08)
[2023-05-28] MEDS ORDERED: RAMIPRIL 5 MG CAPSULE ONE (22:08)
[2023-05-28] MEDS ORDERED: ATORVASTATIN CA 10 MG TABLET (FP) ONE (22:08)
[2023-05-28] MEDS: ATORVASTATIN CA 10 MG TABLET (FP) PO SCH (22:14)
[2023-05-28] MEDS: MONTELUKAST NA 10 MG TABLET PO SCH (22:14)
[2023-05-28] MEDS: RAMIPRIL 5 MG CAPSULE PO SCH (22:14)
[2023-05-29 08:35] LABS: BASO % 0.7 % (0-2.0); EOS % 2.5 % (0-4.5); HEMATOCRIT 19.3 % (35.4-49); HEMOGLOBIN 6.2 GM/dL (11.7-16.9); LYMPH % 13.7 % (8-40); MCH 28.9 pg (25.7-33.7); MCHC 32.2 g/dl (32.0-35.9); MEAN CELL VOLUME 89.6 fl (80-96); MEAN PLT VOLUME 7.8 fl (7.5-11.1); MONO % 7.5 % (3.8-10.2); NEUT % 75.6 % (42.8-82.8); PLATELET COUNT 157 10^3/uL (134-434); RBC 2.15 M/mm3 (4.00-5.60); RDW 19.3 % (11.9-15.9); WHITE BLOOD COUNT 14.5 K/mm3 (4.0-10.0)
[2023-05-29 08:59] LABS: POTASSIUM 3.2 mmol/L (3.5-5.1)
[2023-05-29 09:03] LABS: CALCIUM 7.9 mg/dL (8.5-10.1)
[2023-05-29 09:04] LABS: ALBUMIN 3.2 g/dl (3.4-5.0); BLOOD UREA NITROGEN 26.4 mg/dL (7-18); MAGNESIUM 2.4 mg/dL (1.8-2.4)
[2023-05-29 09:07] LABS: PHOSPHOROUS 2.5 mg/dL (2.5-4.9)
[2023-05-29 09:08] LABS: TOT PROT 6.9 g/dl (6.4-8.2)
[2023-05-29] MEDS: MULTIVITAMINS (DAILY MVI) TABLET (FP) PO SCH (09:44)
[2023-05-29] MEDS: FUROSEMIDE 40 MG TABLET (FP) PO SCH (09:44)
[2023-05-29] MEDS: POTASSIUM CHLORIDE ORAL LIQUID 20 MEQ/15 ML PO ONE (09:44)
[2023-05-29] MEDS: ALLOPURINOL 300 MG TABLET (FP) PO SCH (09:45)
[2023-05-29] MEDS ORDERED: metoPROLOL SUCCINATE 25 MG TAB.SR.24H (FP) PO SCH (10:00)
[2023-05-29] MEDS ORDERED: amLODIPine BESYLATE 10 MG TABLET (FP) PO SCH (10:00)
[2023-05-29] MEDS: DIGOXIN 0.125 MG TABLET PO SCH (15:33)
[2023-05-29 16:57] LABS: HEMATOCRIT 20.5 % (35.4-49); MCH 29.4 pg (25.7-33.7); MCHC 32.9 g/dl (32.0-35.9); MEAN CELL VOLUME 89.5 fl (80-96); MEAN PLT VOLUME 7.6 fl (7.5-11.1); PLATELET COUNT 141 10^3/uL (134-434); RBC 2.29 M/mm3 (4.00-5.60); RDW 18.2 % (11.9-15.9); WHITE BLOOD COUNT 13.1 K/mm3 (4.0-10.0)
[2023-05-29 17:04] LABS: HEMOGLOBIN 6.7 GM/dL (11.7-16.9)
[2023-05-29] MEDS ORDERED: FUROSEMIDE 40 MG/4 ML INJECTABLE VIAL IVPUSH ONE (17:43)
[2023-05-29] MEDS: LORazepam 0.5 MG TABLET PO ONE (18:09)
[2023-05-29] MEDS: MELATONIN 5 MG TABLETS PO PRN (22:44)
[2023-05-30] MEDS: LORazepam 0.5 MG TABLET PO ONE (00:03)
[2023-05-30] MEDS: FUROSEMIDE 40 MG/4 ML INJECTABLE VIAL IVPUSH ONE (00:22)
[2023-05-30 05:52] LABS: HEMATOCRIT 25.1 % (35.4-49); HEMOGLOBIN 8.5 GM/dL (11.7-16.9); MCH 29.8 pg (25.7-33.7); MEAN CELL VOLUME 87.7 fl (80-96); MEAN PLT VOLUME 7.8 fl (7.5-11.1); PLATELET COUNT 134 10^3/uL (134-434); RBC 2.87 M/mm3 (4.00-5.60); WHITE BLOOD COUNT 12.5 K/mm3 (4.0-10.0)
[2023-05-30] MEDS: FUROSEMIDE 20 MG TABLET (FP) PO SCH (06:12)
[2023-05-30 08:04] LABS: HEMATOCRIT 23.8 % (35.4-49); HEMOGLOBIN 8.1 GM/dL (11.7-16.9); MCH 29.9 pg (25.7-33.7); MCHC 33.9 g/dl (32.0-35.9); MEAN CELL VOLUME 88.1 fl (80-96); MEAN PLT VOLUME 7.6 fl (7.5-11.1); PLATELET COUNT 126 10^3/uL (134-434); RDW 16.5 % (11.9-15.9); WHITE BLOOD COUNT 11.3 K/mm3 (4.0-10.0)
[2023-05-30 08:09] LABS: POTASSIUM 3.1 mmol/L (3.5-5.1)
[2023-05-30 08:11] LABS: BLOOD UREA NITROGEN 15.8 mg/dL (7-18); CALCIUM 7.6 mg/dL (8.5-10.1)
[2023-05-30 08:12] LABS: ALBUMIN 3.1 g/dl (3.4-5.0)
[2023-05-30 08:14] LABS: PHOSPHOROUS 3.2 mg/dL (2.5-4.9)
[2023-05-30 08:15] LABS: CREATININE 0.9 mg/dL (0.55-1.3)
[2023-05-30 08:16] LABS: TOT PROT 6.5 g/dl (6.4-8.2)
[2023-05-30] MEDS: POTASSIUM CHLORIDE ORAL LIQUID 20 MEQ/15 ML PO SCH (12:43)
[2023-05-30] MEDS: FUROSEMIDE 40 MG/4 ML INJECTABLE VIAL IVPB ONE (16:01)
[2023-05-30] MEDS ORDERED: ALPRAZolam 0.25 MG TABLET PO ONE (16:13)
[2023-05-30] MEDS: ALPRAZolam 0.25 MG TABLET PO ONE (19:41)
[2023-05-31 07:41] LABS: POTASSIUM 3.6 mmol/L (3.5-5.1)
[2023-05-31 07:54] LABS: BASO % 0.3 % (0-2.0); CALCIUM 8.3 mg/dL (8.5-10.1); EOS % 1.6 % (0-4.5); HEMATOCRIT 28.2 % (35.4-49); HEMOGLOBIN 9.6 GM/dL (11.7-16.9); LYMPH % 9.5 % (8-40); MEAN CELL VOLUME 88.2 fl (80-96); MEAN PLT VOLUME 7.9 fl (7.5-11.1); NEUT % 81.6 % (42.8-82.8); PLATELET COUNT 139 10^3/uL (134-434); RDW 16.7 % (11.9-15.9); WHITE BLOOD COUNT 10.3 K/mm3 (4.0-10.0)
[2023-05-31 07:55] LABS: ALBUMIN 3.3 g/dl (3.4-5.0); BLOOD UREA NITROGEN 10.1 mg/dL (7-18)
[2023-05-31 07:59] LABS: BILIRUBIN,TOTAL 3.2 mg/dL (0.2-1); TOT PROT 7.3 g/dl (6.4-8.2)
[2023-05-31] MEDS: PANTOPRAZOLE SODIUM 160 MG in SODIUM CHLORIDE 250 ML IVPB SCH (19:12)
[2023-05-31] MEDS: LORazepam 0.5 MG TABLET PO ONE (23:56)
[2023-06-01 09:25] LABS: BASO % 0.5 % (0-2.0); EOS % 1.6 % (0-4.5); HEMATOCRIT 28.4 % (35.4-49); HEMOGLOBIN 9.7 GM/dL (11.7-16.9); LYMPH % 9.5 % (8-40); MCH 30.1 pg (25.7-33.7); MEAN CELL VOLUME 88.7 fl (80-96); MEAN PLT VOLUME 7.9 fl (7.5-11.1); MONO % 7.2 % (3.8-10.2); NEUT % 81.2 % (42.8-82.8); PLATELET COUNT 158 10^3/uL (134-434); RBC 3.21 M/mm3 (4.00-5.60); RDW 17.1 % (11.9-15.9)
[2023-06-01 09:48] LABS: POTASSIUM 3.1 mmol/L (3.5-5.1)
[2023-06-01 09:53] LABS: ALBUMIN 3.2 g/dl (3.4-5.0); CALCIUM 7.9 mg/dL (8.5-10.1)
[2023-06-01 09:56] LABS: CREATININE 0.9 mg/dL (0.55-1.3)
[2023-06-01 09:58] LABS: BILIRUBIN,TOTAL 4.2 mg/dL (0.2-1); TOT PROT 7.1 g/dl (6.4-8.2)
[2023-06-01 10:35] LABS: INR 1.26 (0.83-1.09); PROTHROMBIN TIME (PATIENT) 14.6 SEC (9.7-13.0)
[2023-06-01] MEDS ORDERED: ETOMIDATE 20 MG/10 ML VIAL IVPUSH ONE (10:57)
[2023-06-01] MEDS: POTASSIUM CHLORIDE ORAL LIQUID 20 MEQ/15 ML PO ONE (14:52)
[2023-06-01] MEDS: CEPHALEXIN MONOHYDRATE 500 MG CAPSULE (UD) PO SCH (17:46)
[2023-06-01] MEDS: SODIUM BICARBONATE 650 MG TABLET PO SCH (21:54)
[2023-06-02 07:34] LABS: BASO % 0.5 % (0-2.0); EOS % 2.7 % (0-4.5); HEMATOCRIT 27.3 % (35.4-49); HEMOGLOBIN 9.2 GM/dL (11.7-16.9); LYMPH % 8.4 % (8-40); MCH 29.7 pg (25.7-33.7); MCHC 33.5 g/dl (32.0-35.9); MEAN CELL VOLUME 88.7 fl (80-96); MEAN PLT VOLUME 7.6 fl (7.5-11.1); MONO % 7.6 % (3.8-10.2); NEUT % 80.8 % (42.8-82.8); PLATELET COUNT 162 10^3/uL (134-434); RBC 3.08 M/mm3 (4.00-5.60)
[2023-06-02 07:53] LABS: POTASSIUM 3.3 mmol/L (3.5-5.1)
[2023-06-02 07:57] LABS: ALBUMIN 2.9 g/dl (3.4-5.0); BLOOD UREA NITROGEN 10.6 mg/dL (7-18); MAGNESIUM 2.4 mg/dL (1.8-2.4)
[2023-06-02 07:58] LABS: CALCIUM 7.9 mg/dL (8.5-10.1)
[2023-06-02 08:00] LABS: CREATININE 0.9 mg/dL (0.55-1.3)
[2023-06-02 08:02] LABS: PHOSPHOROUS 3.2 mg/dL (2.5-4.9); TOT PROT 6.8 g/dl (6.4-8.2)
[2023-06-02] MEDS: POTASSIUM CHLORIDE ORAL LIQUID 20 MEQ/15 ML PO ONE (10:13)
[2023-06-02] MEDS: PANTOPRAZOLE 40 MG TABLET PO SCH (10:16)
[2023-06-02] MEDS: POLYETHYLENE GLYCOL (HEALTHYLAX) 3350 17 GM PACKET PO SCH (14:03)
[2023-06-02] MEDS: ACETAMINOPHEN 325 MG TABLET (FP) PO PRN (18:09)
[2023-06-03 08:02] LABS: HEMATOCRIT 27.4 % (35.4-49); HEMOGLOBIN 9.1 GM/dL (11.7-16.9); MCH 29.3 pg (25.7-33.7); MEAN CELL VOLUME 88.8 fl (80-96); MEAN PLT VOLUME 7.6 fl (7.5-11.1); PLATELET COUNT 183 10^3/uL (134-434); RBC 3.09 M/mm3 (4.00-5.60); RDW 16.5 % (11.9-15.9); WHITE BLOOD COUNT 8.5 K/mm3 (4.0-10.0)
[2023-06-03 08:26] LABS: POTASSIUM 3.3 mmol/L (3.5-5.1)
[2023-06-03 08:29] LABS: CALCIUM 8.4 mg/dL (8.5-10.1)
[2023-06-03 08:30] LABS: ALBUMIN 3.1 g/dl (3.4-5.0); BLOOD UREA NITROGEN 10.7 mg/dL (7-18)
[2023-06-03 08:33] LABS: CREATININE 0.8 mg/dL (0.55-1.3)
[2023-06-03 08:35] LABS: BILIRUBIN,TOTAL 1.6 mg/dL (0.2-1); TOT PROT 6.9 g/dl (6.4-8.2)
[2023-06-03] MEDS: POTASSIUM CHLORIDE TABS 10 MEQ TABLET.ER (FP) PO SCH (15:09)
[2023-06-03] MEDS: ACETAMINOPHEN 325 MG TABLET (FP) PO PRN (22:42)
[2023-06-04 09:13] LABS: HEMATOCRIT 27.5 % (35.4-49); HEMOGLOBIN 9.1 GM/dL (11.7-16.9); MCH 29.2 pg (25.7-33.7); MEAN CELL VOLUME 88.4 fl (80-96); MEAN PLT VOLUME 7.6 fl (7.5-11.1); PLATELET COUNT 219 10^3/uL (134-434); RBC 3.11 M/mm3 (4.00-5.60); RDW 16.5 % (11.9-15.9); WHITE BLOOD COUNT 7.9 K/mm3 (4.0-10.0)
[2023-06-04] MEDS: FUROSEMIDE 40 MG/4 ML INJECTABLE VIAL IVPUSH ONE (09:26)
[2023-06-04] MEDS: metoPROLOL SUCCINATE 25 MG TAB.SR.24H (FP) PO SCH (09:27)
[2023-06-04 09:42] LABS: POTASSIUM 3.4 mmol/L (3.5-5.1)
[2023-06-04 10:21] LABS: ALBUMIN 3.3 g/dl (3.4-5.0); BLOOD UREA NITROGEN 8.8 mg/dL (7-18)
[2023-06-04 10:24] LABS: CREATININE 0.9 mg/dL (0.55-1.3)
[2023-06-04 10:26] LABS: BILIRUBIN,TOTAL 1.4 mg/dL (0.2-1); TOT PROT 7.6 g/dl (6.4-8.2)
[2023-06-04 10:37] LABS: CALCIUM 9.3 mg/dL (8.5-10.1)
[2023-06-04] MEDS: POTASSIUM CHLORIDE ORAL LIQUID 20 MEQ/15 ML PO SCH (13:34)
[2023-06-04] MEDS: GABAPENTIN 100 MG CAPSULE PO SCH (21:32)
[2023-06-04] MEDS: MELATONIN 5 MG TABLETS PO PRN (22:58)
[2023-06-05 08:44] LABS: HEMATOCRIT 28.5 % (35.4-49); HEMOGLOBIN 9.4 GM/dL (11.7-16.9); MCH 29.2 pg (25.7-33.7); MCHC 32.8 g/dl (32.0-35.9); MEAN PLT VOLUME 7.7 fl (7.5-11.1); PLATELET COUNT 252 10^3/uL (134-434); RDW 16.6 % (11.9-15.9); WHITE BLOOD COUNT 9.4 K/mm3 (4.0-10.0)
[2023-06-05 09:05] LABS: POTASSIUM 3.5 mmol/L (3.5-5.1)
[2023-06-05 09:08] LABS: CALCIUM 9.1 mg/dL (8.5-10.1)
[2023-06-05 09:09] LABS: BLOOD UREA NITROGEN 12.1 mg/dL (7-18)
[2023-06-05 09:12] LABS: CREATININE 0.9 mg/dL (0.55-1.3)
[2023-06-06 23:24] VITALS: BMI 28.9
[2023-06-08 08:20] LABS: HEMATOCRIT 28.6 % (35.4-49); HEMOGLOBIN 9.3 GM/dL (11.7-16.9); MCH 29.1 pg (25.7-33.7); MCHC 32.7 g/dl (32.0-35.9); MEAN PLT VOLUME 7.5 fl (7.5-11.1); PLATELET COUNT 284 10^3/uL (134-434); RBC 3.21 M/mm3 (4.00-5.60); RDW 16.8 % (11.9-15.9); WHITE BLOOD COUNT 7.7 K/mm3 (4.0-10.0)
[2023-06-08 08:40] LABS: POTASSIUM 3.5 mmol/L (3.5-5.1)
[2023-06-08 08:42] LABS: CALCIUM 8.9 mg/dL (8.5-10.1)
[2023-06-08 08:43] LABS: ALBUMIN 3.4 g/dl (3.4-5.0); BLOOD UREA NITROGEN 14.8 mg/dL (7-18)
[2023-06-08 08:46] LABS: CREATININE 0.9 mg/dL (0.55-1.3)
[2023-06-08 08:48] LABS: TOT PROT 8.1 g/dl (6.4-8.2)
[2023-06-08] MEDS: metoPROLOL SUCCINATE 25 MG TAB.SR.24H (FP) PO ONE (22:10)
[2023-06-09 09:51] LABS: HEMATOCRIT 27.9 % (35.4-49); HEMOGLOBIN 9.5 GM/dL (11.7-16.9); MCH 29.9 pg (25.7-33.7); MEAN PLT VOLUME 7.5 fl (7.5-11.1); PLATELET COUNT 284 10^3/uL (134-434); RBC 3.17 M/mm3 (4.00-5.60); RDW 17.3 % (11.9-15.9); WHITE BLOOD COUNT 7.9 K/mm3 (4.0-10.0)
[2023-06-09] MEDS: APIXABAN 2.5 MG TABLET PO SCH (21:19)
[2023-06-10 09:04] LABS: HEMATOCRIT 29.5 % (35.4-49); HEMOGLOBIN 9.6 GM/dL (11.7-16.9); MCH 29.3 pg (25.7-33.7); MCHC 32.5 g/dl (32.0-35.9); MEAN CELL VOLUME 90.2 fl (80-96); MEAN PLT VOLUME 7.7 fl (7.5-11.1); PLATELET COUNT 273 10^3/uL (134-434); RBC 3.27 M/mm3 (4.00-5.60); RDW 17.2 % (11.9-15.9); WHITE BLOOD COUNT 8.5 K/mm3 (4.0-10.0)
[2023-06-10 09:20] LABS: POTASSIUM 3.8 mmol/L (3.5-5.1)
[2023-06-10 10:38] LABS: CALCIUM 9.4 mg/dL (8.5-10.1)
[2023-06-10 10:41] LABS: CREATININE 0.9 mg/dL (0.55-1.3)
[2023-06-10 23:43] VITALS: TEMP 98.1
[2023-06-11 09:05] LABS: HEMATOCRIT 26.8 % (35.4-49); HEMOGLOBIN 8.8 GM/dL (11.7-16.9); MCHC 32.8 g/dl (32.0-35.9); MEAN CELL VOLUME 88.3 fl (80-96); MEAN PLT VOLUME 7.4 fl (7.5-11.1); PLATELET COUNT 236 10^3/uL (134-434); RBC 3.04 M/mm3 (4.00-5.60); RDW 17.1 % (11.9-15.9); WHITE BLOOD COUNT 7.3 K/mm3 (4.0-10.0)
[2023-06-11 09:26] LABS: POTASSIUM 3.4 mmol/L (3.5-5.1)
[2023-06-11 09:30] LABS: CALCIUM 8.8 mg/dL (8.5-10.1)
[2023-06-11 09:31] LABS: BLOOD UREA NITROGEN 20.1 mg/dL (7-18)
[2023-06-11 09:49] VITALS: BP 146/74; PULSE 66; RESP 18
[2023-06-11] MEDS: POTASSIUM CHLORIDE ORAL LIQUID 20 MEQ/15 ML PO ONE (13:52)
== END 2023-06-11 15:04 | disposition short-term general hospital (02) | DRG 378 ==
LOC: JER 11:31 → JERBED 16:13 → J4S 23:57
PROVIDERS: ADMIT Internal Medicine; ATTEND Internal Medicine
PROC: 30233N1 Transfusion of Nonautologous Red Blood Cells into Peripheral Vein, Percutaneous Approach (ICD-10-PCS; 2023-05-29)
PROC: 0DB68ZX Excision of Stomach, Via Natural or Artificial Opening Endoscopic, Diagnostic (ICD-10-PCS; principal; 2023-06-01 11:00)
DX: K55.21 Angiodysplasia of colon with hemorrhage (principal); D62 Acute posthemorrhagic anemia; I50.32 Chronic diastolic (congestive) heart failure; E87.1 Hypo-osmolality and hyponatremia; I24.89 Other forms of acute ischemic heart disease; I48.20 Chronic atrial fibrillation, unspecified; E78.5 Hyperlipidemia, unspecified; D64.9 Anemia, unspecified; Z79.01 Long term (current) use of anticoagulants; I25.10 Atherosclerotic heart disease of native coronary artery without angina pectoris; Z95.2 Presence of prosthetic heart valve; F32.A Depression, unspecified; Z91.51 Personal history of suicidal behavior; I11.0 Hypertensive heart disease with heart failure; M10.9 Gout, unspecified; E87.6 Hypokalemia; I44.0 Atrioventricular block, first degree; K59.00 Constipation, unspecified; G47.00 Insomnia, unspecified
CPT/HCPCS: 0241U-QW; 36415; 36430; 71046-TC-FY; 80048; 80053; 80162; 82272; 82728; 83540; 83550; 83735; 83880; 84100; 84484; 85025; 85027; 85610; 85730; 86850; 86900; 86901; 86922; 87635; 88305-TC; 93005; 93010; 97116-GP; 97161-GP; 99285-25; P9038; P9058

== ENCOUNTER 2023-06-28 09:09 | Observation (INO) | payer MEDICARE, OTHER ==
[2023-06-28 09:16] VITALS: BMI 27.9
[2023-06-28 10:31] LABS: BASO % 0.7 % (0-2.0); EOS % 1.4 % (0-4.5); HEMATOCRIT 26.1 % (35.4-49); HEMOGLOBIN 8.4 GM/dL (11.7-16.9); LYMPH % 10.4 % (8-40); MCH 28.6 pg (25.7-33.7); MEAN CELL VOLUME 89.3 fl (80-96); MEAN PLT VOLUME 7.8 fl (7.5-11.1); MONO % 5.6 % (3.8-10.2); NEUT % 81.9 % (42.8-82.8); PLATELET COUNT 242 10^3/uL (134-434); RBC 2.93 M/mm3 (4.00-5.60); RDW 18.8 % (11.9-15.9); WHITE BLOOD COUNT 11.2 K/mm3 (4.0-10.0)
[2023-06-28 10:40] LABS: INR 1.64 (0.83-1.09); PROTHROMBIN TIME (PATIENT) 18.9 SEC (9.7-13.0)
[2023-06-28 10:43] LABS: ACTIVATED PTT 35.6 SECONDS (25.2-36.5)
[2023-06-28 10:58] LABS: POTASSIUM 3.6 mmol/L (3.5-5.1)
[2023-06-28 11:01] LABS: ALBUMIN 3.4 g/dl (3.4-5.0); BLOOD UREA NITROGEN 16.2 mg/dL (7-18); CALCIUM 8.8 mg/dL (8.5-10.1)
[2023-06-28 11:03] LABS: CREATININE 1.1 mg/dL (0.55-1.3)
[2023-06-28 11:05] LABS: TOT PROT 8.3 g/dl (6.4-8.2)
[2023-06-28 12:11] LABS: POTASSIUM 3.7 mmol/L (3.5-5.1)
[2023-06-28 12:12] LABS: CALCIUM 8.5 mg/dL (8.5-10.1)
[2023-06-28 12:13] LABS: BLOOD UREA NITROGEN 16.6 mg/dL (7-18)
[2023-06-28 19:00] LABS: BASO % 1.2 % (0-2.0); EOS % 2.5 % (0-4.5); HEMATOCRIT 26.3 % (35.4-49); HEMOGLOBIN 8.7 GM/dL (11.7-16.9); LYMPH % 12.2 % (8-40); MCH 29.1 pg (25.7-33.7); MEAN CELL VOLUME 88.3 fl (80-96); MEAN PLT VOLUME 7.7 fl (7.5-11.1); NEUT % 78.1 % (42.8-82.8); PLATELET COUNT 230 10^3/uL (134-434); RBC 2.98 M/mm3 (4.00-5.60); RDW 18.3 % (11.9-15.9)
[2023-06-28] MEDS ORDERED: FUROSEMIDE 20 MG TABLET (FP) PO SCH (22:00)
[2023-06-28] MEDS ORDERED: PATIENT'S OWN MEDICATION (NON-FORMULARY) (Pravastatin Sodium 40 MG Tablet) PO SCH (22:00)
[2023-06-28] MEDS ORDERED: FUROSEMIDE 20 MG TABLET (FP) ONE (23:49)
[2023-06-28] MEDS ORDERED: ATORVASTATIN CA 10 MG TABLET (FP) ONE (23:49)
[2023-06-28] MEDS ORDERED: MELATONIN 5 MG TABLETS ONE (23:49)
[2023-06-28] MEDS ORDERED: MONTELUKAST NA 10 MG TABLET ONE (23:49)
[2023-06-28] MEDS ORDERED: PANTOPRAZOLE SODIUM 40 MG VIAL ONE (23:49)
[2023-06-28] MEDS: MONTELUKAST NA 10 MG TABLET PO SCH (23:55)
[2023-06-28] MEDS: ATORVASTATIN CA 10 MG TABLET (FP) PO ONE (23:55)
[2023-06-28] MEDS: FUROSEMIDE 20 MG TABLET (FP) PO ONE (23:55)
[2023-06-28] MEDS: PANTOPRAZOLE SODIUM 40 MG VIAL IVPUSH SCH (23:55)
[2023-06-28] MEDS: MELATONIN 5 MG TABLETS PO SCH (23:55)
[2023-06-29 01:03] LABS: BASO % 0.6 % (0-2.0); EOS % 2.6 % (0-4.5); HEMATOCRIT 25.1 % (35.4-49); HEMOGLOBIN 8.4 GM/dL (11.7-16.9); LYMPH % 10.6 % (8-40); MCH 29.6 pg (25.7-33.7); MCHC 33.6 g/dl (32.0-35.9); MEAN PLT VOLUME 7.6 fl (7.5-11.1); MONO % 6.5 % (3.8-10.2); NEUT % 79.7 % (42.8-82.8); PLATELET COUNT 214 10^3/uL (134-434); RBC 2.85 M/mm3 (4.00-5.60); WHITE BLOOD COUNT 8.5 K/mm3 (4.0-10.0)
[2023-06-29] MEDS ORDERED: FUROSEMIDE 20 MG TABLET (FP) PO SCH (06:00)
[2023-06-29] MEDS: FUROSEMIDE 20 MG TABLET (FP) PO SCH (06:36)
[2023-06-29] MEDS: OXYMETAZOLINE 0.05% NASAL SOLUTION 15 ML BOTTLE NS SCH (06:36)
[2023-06-29] MEDS ORDERED: PANTOPRAZOLE 40 MG TABLET PO SCH (07:00)
[2023-06-29 09:21] LABS: BASO % 0.7 % (0-2.0); EOS % 2.6 % (0-4.5); HEMATOCRIT 24.8 % (35.4-49); HEMOGLOBIN 8.5 GM/dL (11.7-16.9); LYMPH % 15.1 % (8-40); MCH 29.9 pg (25.7-33.7); MCHC 34.1 g/dl (32.0-35.9); MEAN CELL VOLUME 87.8 fl (80-96); MEAN PLT VOLUME 7.9 fl (7.5-11.1); MONO % 6.3 % (3.8-10.2); NEUT % 75.3 % (42.8-82.8); PLATELET COUNT 212 10^3/uL (134-434); RBC 2.83 M/mm3 (4.00-5.60); RDW 18.3 % (11.9-15.9); WHITE BLOOD COUNT 7.7 K/mm3 (4.0-10.0)
[2023-06-29] MEDS: amLODIPine BESYLATE 10 MG TABLET (FP) PO SCH (09:41)
[2023-06-29] MEDS: ALLOPURINOL 300 MG TABLET (FP) PO SCH (09:41)
[2023-06-29] MEDS: MULTIVITAMINS (DAILY MVI) TABLET (FP) PO SCH (09:41)
[2023-06-29] MEDS: POTASSIUM CHLORIDE TABS 10 MEQ TABLET.ER (FP) PO SCH (09:41)
[2023-06-29 09:42] LABS: POTASSIUM 3.7 mmol/L (3.5-5.1)
[2023-06-29] MEDS: metoPROLOL SUCCINATE 25 MG TAB.SR.24H (FP) PO SCH (09:42)
[2023-06-29] MEDS: RAMIPRIL 5 MG CAPSULE PO SCH (09:43)
[2023-06-29 09:45] LABS: BLOOD UREA NITROGEN 13.5 mg/dL (7-18); CALCIUM 9.2 mg/dL (8.5-10.1)
[2023-06-29 09:46] LABS: ALBUMIN 3.3 g/dl (3.4-5.0); MAGNESIUM 2.4 mg/dL (1.8-2.4)
[2023-06-29 09:49] LABS: PHOSPHOROUS 4.1 mg/dL (2.5-4.9)
[2023-06-29 09:50] LABS: BILIRUBIN,TOTAL 1.2 mg/dL (0.2-1); TOT PROT 7.8 g/dl (6.4-8.2)
[2023-06-29] MEDS ORDERED: PATIENT'S OWN MEDICATION (NON-FORMULARY) (Multivitamin [Multivitamin] 1 EACH Tablet) PO SCH (10:00)
[2023-06-29] MEDS: ATORVASTATIN CA 10 MG TABLET (FP) PO SCH (21:14)
[2023-06-29] MEDS: POLYETHYLENE GLYCOL (HEALTHYLAX) 3350 17 GM PACKET PO SCH (21:14)
[2023-06-29] MEDS ORDERED: ATORVASTATIN CA 10 MG TABLET (FP) PO SCH (22:00)
[2023-06-30 07:29] VITALS: RESP 18
[2023-06-30 09:49] LABS: HEMATOCRIT 25.2 % (35.4-49); HEMOGLOBIN 8.4 GM/dL (11.7-16.9); LYMPH % 13.5 % (8-40); MCH 29.5 pg (25.7-33.7); MCHC 33.3 g/dl (32.0-35.9); MEAN CELL VOLUME 88.4 fl (80-96); MEAN PLT VOLUME 7.5 fl (7.5-11.1); NEUT % 78.2 % (42.8-82.8); PLATELET COUNT 227 10^3/uL (134-434); RBC 2.85 M/mm3 (4.00-5.60); WHITE BLOOD COUNT 8.6 K/mm3 (4.0-10.0)
[2023-06-30 09:50] LABS: BASO % 0.8 % (0-2.0); EOS % 2.2 % (0-4.5); MONO % 5.3 % (3.8-10.2)
[2023-06-30 10:04] LABS: POTASSIUM 3.6 mmol/L (3.5-5.1)
[2023-06-30 10:06] LABS: CALCIUM 8.5 mg/dL (8.5-10.1)
[2023-06-30 10:07] LABS: ALBUMIN 3.2 g/dl (3.4-5.0); BLOOD UREA NITROGEN 16.2 mg/dL (7-18)
[2023-06-30 10:10] LABS: CREATININE 1.1 mg/dL (0.55-1.3)
[2023-06-30 10:11] LABS: BILIRUBIN,TOTAL 0.9 mg/dL (0.2-1); TOT PROT 7.8 g/dl (6.4-8.2)
[2023-06-30] MEDS: PANTOPRAZOLE 40 MG TABLET PO SCH (10:30)
[2023-06-30 11:33] VITALS: BP 119/57; PULSE 71; TEMP 98.6
== END 2023-06-30 12:03 | disposition home or self-care (01) ==
LOC: JER 09:09 → JERBED 14:56 → J5S 06-29 03:52
PROVIDERS: ADMIT Internal Medicine; ATTEND Internal Medicine
PROC: 3E033GC Introduction of Other Therapeutic Substance into Peripheral Vein, Percutaneous Approach (ICD-10-PCS; principal; 2023-06-28)
DX: K57.91 Diverticulosis of intestine, part unspecified, without perforation or abscess with bleeding (principal); K29.70 Gastritis, unspecified, without bleeding; I50.33 Acute on chronic diastolic (congestive) heart failure; K92.9 Disease of digestive system, unspecified; Z95.1 Presence of aortocoronary bypass graft; I48.91 Unspecified atrial fibrillation; I25.10 Atherosclerotic heart disease of native coronary artery without angina pectoris; I11.0 Hypertensive heart disease with heart failure; E78.5 Hyperlipidemia, unspecified; I09.9 Rheumatic heart disease, unspecified; R01.1 Cardiac murmur, unspecified; R04.0 Epistaxis; Z79.01 Long term (current) use of anticoagulants; M10.9 Gout, unspecified; Z95.2 Presence of prosthetic heart valve; Z86.19 Personal history of other infectious and parasitic diseases; Z91.013 Allergy to seafood; Z98.49 Cataract extraction status, unspecified eye
CPT/HCPCS: 36415; 74174-TC; 80048; 80053; 82272; 83690; 83735; 84100; 85025; 85610; 85730; 86850; 86900; 86901; 93005; 93010; 96374; 99285-25; G0378; Q9967

== ENCOUNTER 2023-10-27 14:39 | Observation (INO) | payer MEDICARE, OTHER ==
[2023-10-27 16:38] LABS: BASO % 0.7 % (0-2.0); EOS % 0.8 % (0-4.5); HEMATOCRIT 30.8 % (35.4-49); HEMOGLOBIN 10.1 GM/dL (11.7-16.9); LYMPH % 9.4 % (8-40); MCH 28.7 pg (25.7-33.7); MCHC 32.7 g/dl (32.0-35.9); MEAN CELL VOLUME 87.9 fl (80-96); MEAN PLT VOLUME 6.9 fl (7.5-11.1); MONO % 5.9 % (3.8-10.2); NEUT % 83.2 % (42.8-82.8); PLATELET COUNT 194 10^3/uL (134-434); RBC 3.51 M/mm3 (4.00-5.60); RDW 18.3 % (11.9-15.9); WHITE BLOOD COUNT 7.8 K/mm3 (4.0-10.0)
[2023-10-27 16:44] LABS: INR 1.52 (0.83-1.09)
[2023-10-27 16:47] LABS: ACTIVATED PTT 38.3 SECONDS (25.2-36.5)
[2023-10-27 16:55] LABS: POTASSIUM 4.4 mmol/L (3.5-5.1)
[2023-10-27 16:57] LABS: CALCIUM 9.3 mg/dL (8.5-10.1)
[2023-10-27 16:58] LABS: ALBUMIN 3.9 g/dl (3.4-5.0); BLOOD UREA NITROGEN 21.9 mg/dL (7-18)
[2023-10-27 17:02] LABS: BILIRUBIN,TOTAL 1.1 mg/dL (0.2-1); TOT PROT 8.8 g/dl (6.4-8.2)
[2023-10-27] MEDS ORDERED: MECLIZINE HCL 25 MG TABLET (FP) ONE (17:07)
[2023-10-27] MEDS: MECLIZINE HCL 25 MG TABLET (FP) PO ONE (17:08)
[2023-10-27 17:31] LABS: PH,URINE 5.5 (5.0-8.0); URINE APPEARANCE Clear; URINE BILIRUBIN Negative (NEGATIVE); URINE COLOR Yellow; URINE GLUCOSE (UA) Negative (NEGATIVE); URINE KETONE Negative (NEGATIVE); URINE LEUK ESTERASE Negative (NEGATIVE); URINE NITRITE Negative (NEGATIVE); URINE PROTEIN Negative (NEGATIVE); URINE UROBILINOGEN 0.2 mg/dL (0.2-1.0)
[2023-10-27 18:16] LABS: HYALINE CASTS 0.14 /uL (0-3.1); URINE BACTERIA 0.9 /uL (0-1359); URINE RBC 7.5 /uL (0-23.9); URINE WBC 4.9 /uL (0-25.8)
[2023-10-27 18:17] LABS: URINE CRYSTALS FEW /hpf
[2023-10-27] MEDS ORDERED: MECLIZINE HCL 25 MG TABLET (FP) PO PRN (21:15)
[2023-10-27] MEDS ORDERED: SIMETHICONE 80 MG TAB.CHEW (FP) PO PRN (21:20)
[2023-10-27] MEDS ORDERED: PANTOPRAZOLE 40 MG TABLET PO ONE (21:24)
[2023-10-27] MEDS ORDERED: FUROSEMIDE 20 MG TABLET (FP) ONE (21:24)
[2023-10-27] MEDS ORDERED: APIXABAN 5 MG TABLET ONE (21:24)
[2023-10-27] MEDS ORDERED: MONTELUKAST NA 10 MG TABLET ONE (21:24)
[2023-10-27] MEDS ORDERED: POLYETHYLENE GLYCOL (HEALTHYLAX) 3350 17 GM PACKET ONE (21:24)
[2023-10-27] MEDS: MONTELUKAST NA 10 MG TABLET PO SCH (21:28)
[2023-10-27] MEDS: POLYETHYLENE GLYCOL (HEALTHYLAX) 3350 17 GM PACKET PO SCH (21:28)
[2023-10-27] MEDS: APIXABAN 5 MG TABLET PO SCH (21:28)
[2023-10-27] MEDS: PANTOPRAZOLE 40 MG TABLET PO SCH (21:28)
[2023-10-27] MEDS ORDERED: ATORVASTATIN CA 10 MG TABLET (FP) ONE (21:32)
[2023-10-27] MEDS ORDERED: LORATADINE 10 MG TABLET ONE (21:32)
[2023-10-27] MEDS: LORATADINE 10 MG TABLET PO SCH (21:34)
[2023-10-27] MEDS: ATORVASTATIN CA 10 MG TABLET (FP) PO SCH (21:34)
[2023-10-27] MEDS ORDERED: PATIENT'S OWN MEDICATION (NON-FORMULARY) (Pravastatin Sodium 40 MG Tablet) PO SCH (22:00)
[2023-10-27] MEDS ORDERED: CETIRIZINE HCL 10 MG PO SCH (22:00)
[2023-10-27 22:13] VITALS: BMI 29.9
[2023-10-27] MEDS: IRON SUCROSE INJECTION 200 MG in SODIUM CHLORIDE 100 ML IVPB ONE (23:08)
[2023-10-28] MEDS: FUROSEMIDE 20 MG TABLET (FP) PO SCH (06:21)
[2023-10-28 08:29] LABS: HEMATOCRIT 29.9 % (35.4-49); HEMOGLOBIN 9.8 GM/dL (11.7-16.9); MCH 28.7 pg (25.7-33.7); MCHC 32.8 g/dl (32.0-35.9); MEAN CELL VOLUME 87.6 fl (80-96); MEAN PLT VOLUME 7.6 fl (7.5-11.1); PLATELET COUNT 196 10^3/uL (134-434); RBC 3.41 M/mm3 (4.00-5.60); RDW 18.2 % (11.9-15.9); WHITE BLOOD COUNT 7.2 K/mm3 (4.0-10.0)
[2023-10-28 08:39] LABS: ALBUMIN 3.8 g/dl (3.4-5.0)
[2023-10-28 08:40] LABS: BLOOD UREA NITROGEN 21.3 mg/dL (7-18); MAGNESIUM 2.5 mg/dL (1.8-2.4)
[2023-10-28 08:42] LABS: PHOSPHOROUS 3.7 mg/dL (2.5-4.9)
[2023-10-28 08:43] LABS: CREATININE 0.9 mg/dL (0.55-1.3)
[2023-10-28 08:45] LABS: TOT PROT 8.6 g/dl (6.4-8.2)
[2023-10-28 09:13] LABS: BILIRUBIN,TOTAL 0.9 mg/dL (0.2-1)
[2023-10-28] MEDS: metoPROLOL SUCCINATE 25 MG TAB.SR.24H (FP) PO SCH (10:11)
[2023-10-28] MEDS: ALLOPURINOL 300 MG TABLET (FP) PO SCH (10:11)
[2023-10-28] MEDS: amLODIPine BESYLATE 10 MG TABLET (FP) PO SCH (10:11)
[2023-10-28] MEDS: MULTIVITAMINS (DAILY MVI) TABLET (FP) PO SCH (10:11)
[2023-10-28] MEDS: RAMIPRIL 5 MG CAPSULE PO SCH (10:11)
[2023-10-28] MEDS: IRON SUCROSE INJECTION 200 MG in SODIUM CHLORIDE 100 ML IVPB ONE (10:37)
[2023-10-28] MEDS: POTASSIUM CHLORIDE TABS 20 MEQ TABLET.ER (FP) PO SCH (11:51)
[2023-10-28] MEDS: POTASSIUM CHLORIDE ORAL LIQUID 20 MEQ/15 ML PO SCH (21:45)
[2023-10-29 01:45] VITALS: RESP 18
[2023-10-29 08:05] LABS: EOS % 2.9 % (0-4.5); HEMATOCRIT 33.1 % (35.4-49); LYMPH % 21.7 % (8-40); MCH 29.2 pg (25.7-33.7); MCHC 33.2 g/dl (32.0-35.9); MEAN PLT VOLUME 7.5 fl (7.5-11.1); MONO % 7.2 % (3.8-10.2); NEUT % 67.2 % (42.8-82.8); PLATELET COUNT 206 10^3/uL (134-434); RBC 3.76 M/mm3 (4.00-5.60); RDW 18.4 % (11.9-15.9); WHITE BLOOD COUNT 8.4 K/mm3 (4.0-10.0)
[2023-10-29 08:27] LABS: POTASSIUM 4.2 mmol/L (3.5-5.1)
[2023-10-29 08:29] LABS: CALCIUM 9.4 mg/dL (8.5-10.1); MAGNESIUM 2.5 mg/dL (1.8-2.4)
[2023-10-29 08:30] LABS: BLOOD UREA NITROGEN 21.6 mg/dL (7-18)
[2023-10-29 08:33] LABS: CREATININE 0.9 mg/dL (0.55-1.3)
[2023-10-29 11:22] VITALS: BP 155/88; PULSE 98; TEMP 97.7
== END 2023-10-29 14:55 | disposition home or self-care (01) ==
LOC: JER 14:39 → JERBED 18:45 → J7W 22:05
PROVIDERS: ADMIT Internal Medicine; ATTEND Internal Medicine
PROC: 3E033GC Introduction of Other Therapeutic Substance into Peripheral Vein, Percutaneous Approach (ICD-10-PCS; principal; 2023-10-27)
DX: D50.0 Iron deficiency anemia secondary to blood loss (chronic) (principal); K64.9 Unspecified hemorrhoids; I50.30 Unspecified diastolic (congestive) heart failure; I48.91 Unspecified atrial fibrillation; Z79.01 Long term (current) use of anticoagulants; I25.10 Atherosclerotic heart disease of native coronary artery without angina pectoris; Z95.5 Presence of coronary angioplasty implant and graft; E78.5 Hyperlipidemia, unspecified; M10.9 Gout, unspecified; J45.909 Unspecified asthma, uncomplicated; Z95.1 Presence of aortocoronary bypass graft; N40.0 Benign prostatic hyperplasia without lower urinary tract symptoms; Z91.013 Allergy to seafood
CPT/HCPCS: 0241U-QW; 36415; 70450-TC; 71045-TC-FY; 80048; 80053; 81003; 82550; 83735; 84100; 84443; 84484; 85025; 85027; 85045; 85610; 85730; 86850; 86900; 86901; 87086; 87186; 93005; 93010; 96365; 96366; 97116-GP; 97161-GP; 99285-25; G0378; J1756

== ENCOUNTER 2025-02-24 08:58 | Emergency (ER) | payer MEDICARE, OTHER ==
[2025-02-24] MEDS ORDERED: TRANEXAMIC ACID 1000 MG/10 ML VIAL ONE (09:14)
[2025-02-24 09:20] VITALS: TEMP 97.8; BMI 28.2
[2025-02-24] MEDS: TRANEXAMIC ACID 1000 MG/10 ML VIAL IVPUSH ONE (09:21)
[2025-02-24] MEDS: OXYMETAZOLINE 0.05% NASAL SOLUTION 15 ML BOTTLE NS ONE (12:10)
[2025-02-24 12:25] VITALS: BP 130/69; PULSE 85; RESP 20
== END 2025-02-24 13:15 | disposition home or self-care (01) ==
LOC: JER 08:58
PROC: 3E033GC Introduction of Other Therapeutic Substance into Peripheral Vein, Percutaneous Approach (ICD-10-PCS; principal; 2025-02-24)
DX: R04.0 Epistaxis (principal)
CPT/HCPCS: 96374; 99284-25